=== PATIENT | female | born 2000 | race Caucasian/White ===

== ENCOUNTER → 2025-07-27 13:04 | Outpatient (REF) | payer OTHER, SELFPAY | LOC: HWRAD 13:04 | PROVIDERS: ATTENDING PHYSICIAN Obstetrics & Gynecology; FAMILY PHYSICIAN Family Medicine | DX: T83.39XA Other mechanical complication of intrauterine contraceptive device, initial encounter (principal) | CPT/HCPCS: 76830; 76856 ==